=== PATIENT | female | born 2000 | race Caucasian/White ===

== ENCOUNTER 2023-09-16 13:15 | Outpatient (RCR) | payer OTHER ==
[~2023-09-16 13:15] MED LIST: AMITRIPTYLINE H25 M1 PO; MULTI VITAMINS1 TAB PO; NORCO 325 MG-51 TAB PO; PAMELOR75 MG PO; PROZAC 20MG20 MG PO; VALIUM 2MG T2 MG/TAB PO; VITAMIN B1 50 MG PO; VITAMIN D 400400 IU PO; ZOFRAN 4MG T4 MG/TAB PO; ZOFRAN ODT4 MG PO
== END 2023-09-18 | disposition home or self-care (01) ==
LOC: WSST
DX: R48.9 Unspecified symbolic dysfunctions (principal); R26.9 Unspecified abnormalities of gait and mobility; E51.2 Wernicke's encephalopathy; Z98.84 Bariatric surgery status

== ENCOUNTER 2023-10-17 14:45 | Outpatient (RCR) | payer OTHER | END 2023-10-19 | disposition home or self-care (01) | LOC: MKS.ESL.PT | DX: E51.2 Wernicke's encephalopathy (principal) ==

== ENCOUNTER 2023-11-14 08:30 | Outpatient (RCR) | payer OTHER | END 2023-11-19 | disposition home or self-care (01) | LOC: MKS.ESL.PT | DX: R48.9 Unspecified symbolic dysfunctions (principal); E51.2 Wernicke's encephalopathy ==

== ENCOUNTER 2023-12-10 14:45 | Outpatient (RCR) | payer OTHER | END 2023-12-18 | disposition home or self-care (01) | LOC: WSST | DX: E51.2 Wernicke's encephalopathy (principal) ==

== ENCOUNTER 2024-01-27 09:45 | Outpatient (RCR) | payer OTHER | END 2024-02-17 | disposition home or self-care (01) | LOC: WSST | DX: R48.9 Unspecified symbolic dysfunctions (principal); E34.8 Other specified endocrine disorders; Z98.84 Bariatric surgery status ==